=== PATIENT | female | born 1975 | race Caucasian/White ===

== ENCOUNTER 2016-07-19 09:16 | Emergency (ER) | payer MEDICARE ==
[~2016-07-19] VITALS: Ht 172.7 cm; Wt 72.2 kg
[2016-07-19] MEDS ORDERED: IBUPROF CH100 MG/5 M PO (09:35)
[2016-07-19] MEDS ORDERED: PENICILLN250 MG/5 M PO (09:35)
[2016-07-19 09:40] VITALS: BP 129/74
== END 2016-07-19 09:40 | disposition home or self-care (01) ==
LOC: ED 09:16
DX: K08.89 Other specified disorders of teeth and supporting structures (principal); K02.9 Dental caries, unspecified

== ENCOUNTER 2018-01-09 17:01 | Emergency (ER) | payer MEDICARE ==
[~2018-01-09] VITALS: Ht 172.7 cm; Wt 54.0 kg
[~2018-01-09 17:01] MED LIST: IBUPROF CH100 MG/5 M PO; PENICILLN250 MG/5 M PO
[2018-01-09] MEDS ORDERED: AMOXICILLIN/CL400 MG PO (17:43)
[2018-01-09 17:53] VITALS: BP 167/77
== END 2018-01-09 18:05 | disposition home or self-care (01) ==
LOC: ED 17:01
PROC: 0HQEXZZ Repair Left Lower Arm Skin, External Approach (ICD-10-PCS; principal; 2018-01-09)
DX: S51.852A Open bite of left forearm, initial encounter (principal); W54.0XXA Bitten by dog, initial encounter; Y93.K1 Activity, walking an animal

== ENCOUNTER 2018-01-16 09:02 | Emergency (ER) | payer MEDICARE ==
[~2018-01-16] VITALS: Ht 172.7 cm; Wt 65.0 kg
[~2018-01-16 09:02] MED LIST changes: +AMOXICILLIN/CL400 MG PO
[2018-01-16 09:11] VITALS: BP 118/62
== END 2018-01-16 09:21 | disposition home or self-care (01) ==
LOC: ED 09:02
DX: S51.852D Open bite of left forearm, subsequent encounter (principal); W54.0XXD Bitten by dog, subsequent encounter